=== PATIENT | female | born 2000 | race African-American/Black ===

== ENCOUNTER 2022-12-13 15:42 | Emergency (ER) | payer OTHER ==
[2022-12-13 15:50] VITALS: BP 139/82; PULSE 107; RESP 20; TEMP 100.2; BMI 36.8
[2022-12-13] MEDS ORDERED: FAMOTIDINE 20 MG/50 ML IVPB 20 MG/50 ML MG IVPB ONE ×2 (16:32→17:38)
[2022-12-13] MEDS ORDERED: ACETAMINOPHEN 1000 MG/100 ML BAG IVPB ONE (16:32)
[2022-12-13] MEDS ORDERED: ONDANSETRON 4 MG/2 ML VIAL IVPB ONE (16:33)
[2022-12-13] MEDS ORDERED: SODIUM CHLORIDE 0.9% 500 ML INFUS.BAG IV ONE (16:33)
[2022-12-13] MEDS ORDERED: ONDANSETRON 4 MG/2 ML VIAL ONE (17:38)
[2022-12-13] MEDS ORDERED: ACETAMINOPHEN INJECTION 100 ML IVPB ONE (17:38)
[2022-12-13 18:34] LABS: BASO % 0.5 % (0-2.0); EOS % 0.6 % (0-4.5); HEMATOCRIT 36.3 % (32.4-45.2); LYMPH % 43.1 % (8-40); MCH 23.8 pg (25.7-33.7); MCHC 33.1 g/dl (32.0-36.0); MEAN CELL VOLUME 71.8 fl (80-96); MEAN PLT VOLUME 10.4 fl (7.5-11.1); MONO % 14.7 % (3.8-10.2); NEUT % 41.1 % (42.8-82.8); PLATELET COUNT 212 10^3/uL (134-434); RBC 5.06 M/mm3 (3.60-5.2); RDW 14.5 % (11.6-15.6); WHITE BLOOD COUNT 3.8 K/mm3 (4.0-10.0)
[2022-12-13 18:46] LABS: EPI CELLS >36 /uL (0-25.1); HYALINE CASTS 12 /uL (0-3.1); PH,URINE 5.5 (5.0-8.0); URINE APPEARANCE CLOUDY; URINE BACTERIA 1983 /uL (0-1359); URINE BILIRUBIN 2+ (NEGATIVE); URINE COLOR DK YELLOW; URINE GLUCOSE (UA) NEGATIVE (NEGATIVE); URINE KETONE 3+ (NEGATIVE); URINE LEUK ESTERASE NEGATIVE (NEGATIVE); URINE NITRITE NEGATIVE (NEGATIVE); URINE PROTEIN 1+ (NEGATIVE)
[2022-12-13 18:54] LABS: POTASSIUM 4.3 mmol/L (3.5-5.1)
[2022-12-13 18:56] LABS: CALCIUM 8.6 mg/dL (8.5-10.1)
[2022-12-13 18:57] LABS: ALBUMIN 3.6 g/dl (3.4-5.0); BLOOD UREA NITROGEN 10.1 mg/dL (7-18)
[2022-12-13 19:00] LABS: CREATININE 0.8 mg/dL (0.55-1.3)
[2022-12-13 19:01] LABS: BILIRUBIN,TOTAL 0.7 mg/dL (0.2-1)
[2022-12-13 19:02] LABS: TOT PROT 7.6 g/dl (6.4-8.2)
[2022-12-13 20:12] LABS: URINE RBC 60.2 /uL (0-23.9); URINE WBC 65.3 /uL (0-25.8)
== END 2022-12-14 01:06 | disposition left against medical advice (07) ==
LOC: JERFT 15:42
PROC: 3E033GC Introduction of Other Therapeutic Substance into Peripheral Vein, Percutaneous Approach (ICD-10-PCS; principal; 2022-12-13)
PROC: 3E033NZ Introduction of Analgesics, Hypnotics, Sedatives into Peripheral Vein, Percutaneous Approach (ICD-10-PCS; 2022-12-13)
PROC: 3E033GC Introduction of Other Therapeutic Substance into Peripheral Vein, Percutaneous Approach (ICD-10-PCS; 2022-12-13)
DX: R11.2 Nausea with vomiting, unspecified (principal); R19.7 Diarrhea, unspecified; R68.83 Chills (without fever)
CPT/HCPCS: 36415; 71046-TC-FY; 74177-TC; 76705-TC; 80053; 81003; 83690; 83735; 84703; 85025; 87086; 99285-25; Q9967